=== PATIENT | female | born 1995 | race Caucasian/White ===

== ENCOUNTER → 2019-03-06 12:48 | Outpatient (CLI) | payer OTHER, SELFPAY ==
[2019-03-06 14:01] LABS: Appearance Urine UA CLEAR; Bilirubin Urine UA NEGATIVE (NEGATIVE); Color Urine UA YELLOW; Glucose Urine UA NEGATIVE (Negative); Ketones Urine UA NEGATIVE (NEGATIVE); Leukocyte Esterase Urine UA TRACE (NEGATIVE); Nitrite Urine UA NEGATIVE (Negative); Occult Blood Urine UA NEGATIVE (Negative); Protein Urine UA NEGATIVE (Negative); Urobilinogen Urine UA 0.2 E.U./dL (0.2)
[2019-03-06 14:05] LABS: RBC Urine None Seen (0-5/HPF)
[2019-03-06 14:14] LABS: Bacteria Urine Moderate (10-30); WBC Urine 1-5/HPF (0-5/HPF)
[2019-03-06 14:36] LABS: Add Manual Diff / Slide Review NO; Basophils Absolute Auto 100 /uL (0-100); Basophils Percent Auto 0.6 % (0-2); Eosinophils Absolute Auto 200 /uL (0-450); Eosinophils Percent Auto 1.4 % (2-4); Hematocrit 33.7 % (36-46); Hemoglobin 11.1 g/dL (12.0-16.0); Lymphocytes Absolute Auto 1500 /uL (1100-4500); Mean Corpuscular Hemoglobin 29.1 PG (26-34); Monocytes Absolute Auto 900 /uL (0-900); Monocytes Percent Auto 7.4 % (3-14); Neutrophils Absolute Auto 9100 /uL (1500-7000); Neutrophils Percent Auto 77.6 % (50-75); Platelet Count 238 X10^3/uL (150-400); Red Blood Cell Count 3.83 X10^6/uL (4.0-5.2); Red Cell Distribution Width 14.2 % (11.6-14.8); White Blood Cell Count 11.7 X10^3/uL (4.5-11.0)
[2019-03-06 14:53] LABS: Hemoglobin A1C% w Est Avg Glu 4.9 % (4.0-6.0)
[2019-03-06 14:57] LABS: GTT (PREG) 1 Hour PP 50gm Dose 86 mg/dL (76-139); Glucose 86 mg/dL (70-100)
[2019-03-06 16:23] LABS: Hepatitis B Surface Antigen NEGATIVE s/c (NEGATIVE); Rubella Antibody IgG 12.9 IU/mL (>15)
[2019-03-06 16:40] LABS: Hep C Virus Ab w/Reflex Quant NEGATIVE s/c (NEGATIVE)
[2019-03-09 06:41] LABS: RPR Screen Nonreactive (Nonreactive)
[2019-03-10 15:40] LABS: Varicella IgG Antibody < 135.00 Index (< 135.00)
== END ==
DX: Z34.82 Encounter for supervision of other normal pregnancy, second trimester (principal); Z3A.29 29 weeks gestation of pregnancy
CPT/HCPCS: 36415; 80055; 81003; 81015; 82947; 82950; 83036; 86787; 86803; 86850; 86900; 86901; 87086